=== PATIENT | male | born 2000 | race Caucasian/White ===

== ENCOUNTER 2018-02-26 12:59 | Emergency (ER) | payer BC ==
[~2018-02-26 12:59] MED LIST: NYSTATIN15 GM T; SEPTDS PO
[2018-02-26] MEDS ORDERED: CEPHALEXIN500 M1 PO (13:11)
== END 2018-02-26 13:20 | disposition home or self-care (01) ==
LOC: ED 12:59
DX: L02.414 Cutaneous abscess of left upper limb (principal)

== ENCOUNTER 2018-03-01 13:42 | Emergency (ER) | payer BC ==
[~2018-03-01] VITALS: Ht 185.4 cm; Wt 83.9 kg
[~2018-03-01 13:42] MED LIST changes: +CEPHALEXIN500 M1 PO
[2018-03-01] MEDS ORDERED: SEPTDS PO (14:13)
== END 2018-03-01 15:16 | disposition home or self-care (01) ==
LOC: ED 13:42
DX: L02.412 Cutaneous abscess of left axilla (principal)

== ENCOUNTER → 2018-03-03 | Outpatient (CLI) | payer BC | END | disposition home or self-care (01) | LOC: WOUNDCARE 09:04 | DX: S41.102A Unspecified open wound of left upper arm, initial encounter (principal); L02.412 Cutaneous abscess of left axilla; A49.02 Methicillin resistant Staphylococcus aureus infection, unspecified site; F17.210 Nicotine dependence, cigarettes, uncomplicated; X58.XXXA Exposure to other specified factors, initial encounter; Y93.89 Activity, other specified; Y92.89 Other specified places as the place of occurrence of the external cause; Y99.8 Other external cause status ==